=== PATIENT | male | born 1970 | race Caucasian/White ===

== ENCOUNTER 2018-01-21 17:30 | Emergency (ER) | payer SELFPAY ==
[2018-01-21] MEDS ORDERED: KETOROLAC TROMETHAMINE INJ 30 MG/ML VIAL IM ONE (18:56)
[2018-01-21] MEDS ORDERED: MORPHINE SULFATE INJ 10 MG/ML VIAL IM ONE (18:56)
--- NOTE | 2018-01-21 18:56 | ED.PDOC ---
History of Present Illness - General Chief Complaint: Back Pain or Injury Stated Complaint: upper back pain Time Seen by Provider: 01/21/18 18:44 Source: patient Exam Limitations: no limitations - History of Present Illness Initial Comments: Oliverio Foster 47 y/o male stated that he slipped and lost his balance on his boat and fell on his upper back landed on the propeller of his boat.Denies nec / head injuries .Sharp pains below his shoulder blades. Timing/Duration: 1-3 hours Quality/Severity: sharpness Back Pain Location: T-spine Back Pain Radiation: other - none Method of Injury/Prior Injury: fell Improving Factors: rest Worsening Factors: movement Associated Symptoms: denies symptoms Allergies/Adverse Reactions: Allergies No Known Drug Allergy Allergy (Verified 01/21/18 17:49) Home Medications: Ambulatory Orders Acetamin W/Cod #3 Tab [Tylenol w/CODEINE #3] 1 ea PO Q8HRS PRN #14 tab 01/21/18 Cephalexin 1,000 mg PO BID 7 Days #30 cap 01/21/18 Review of Systems - Review of Systems Constitutional: States: no symptoms reported EENTM: States: no symptoms reported Respiratory: States: no symptoms reported Cardiology: States: no symptoms reported Gastrointestinal/Abdominal: States: no symptoms reported Genitourinary: States: no symptoms reported Musculoskeletal: States: see HPI Neurological: States: no symptoms reported Past Medical History (General) - Patient Medical History Hx Seizures: No Hx Stroke: No Hx Dementia: No Hx Asthma: No Hx of COPD: No Hx Cardiac Disorders: No Hx Congestive Heart Failure: No Hx Pacemaker: No Hx Hypertension: No Hx Thyroid Disease: No Hx Diabetes: No Hx Gastroesophageal Reflux: No Hx Renal Disease: No Hx Cancer: No Hx of HIV: No Hx Hepatitis C: No Hx MRSA: No Surgical History: no surgical history - Vaccination History Hx Tetanus, Diphtheria Vaccination: No Hx Influenza Vaccination: No Hx Pneumococcal Vaccination: No Immunizations Up to Date: No - Social History Hx Tobacco Use: No Hx Chewing Tobacco Use: No Hx Alcohol Use: No Hx Substance Use: No Hx Substance Use Treatment: No Hx Depression: No Feels Threatened In Home Enviroment: No Feels Threatened In a Relationship: No Hx Physical Abuse: No Hx Emotional Abuse: No Hx Suspected Abuse: No - Female History Patient is a Female of Child Bearing Age (10 -59 yrs old): No Patient : No Family Medical History - Family History Mother Family History: Unknown Hx Family Diabetes: Yes - dad Physical Exam - Physical Exam General Appearance: Alert, Comfortable, No apparent distress Eyes, Ears, Nose, Throat Exam: normal ENT inspection Neck Exam: non-tender, full range of motion, normal alignment, normal inspection Cardiovascular/Respiratory: regular rate, rhythm, no M/R/G, normal peripheral pulses, normal breath sounds, no respiratory distress Peripheral Pulses: radial,right: 2+, radial,left: 2+ Gastrointestinal/Abdominal: non tender, soft Back Exam: no CVA tenderness, no vertebral tenderness, other - tenderness mid thoracic area Extremity Exam: no evidence of injury, normal range of motion, non-tender Neurologic: no motor/sensory deficits, alert Skin Exam: normal color, warm/dry, other - abrasions mid back linear Progress - Progress Progress: 01/21/18 19:00 Vital Signs - 8 hr 01/21/18 17:30 Temperature 97.7 F Pulse Rate [ 88 Apical] Respiratory 20 Rate Blood Pressure 114/80 [Left Arm] O2 Sat by Pulse 97 Oximetry - EKG/XRAY/CT XRAY: chest - no fracture left ribs ,t-spine,left shoulder CT Ordered: No CT Interpretation Call Back: No Departure - Departure Clinical Impression: Contusion of chest wall with intact skin Fall Qualifiers: Encounter type: initial encounter Qualified Code(s): W19.XXXA - Unspecified fall, initial encounter Abrasion of back Qualifiers: Encounter type: initial encounter Laterality: left Qualified Code(s): S20.412A - Abrasion of left back wall of thorax, initial encounter Time of Disposition: 19:20 Disposition: Discharge to Home or Self Care Condition: Good Departure Forms: ED Discharge - Pt. Copy, Patient Portal Self Enrollment Instructions: Contusion (DC), Bruised Rib (DC) Prescriptions: Acetamin W/Cod #3 Tab [Tylenol w/CODEINE #3] 1 ea PO Q8HRS PRN #14 tab PRN Reason: Pain Cephalexin 1,000 mg PO BID 7 Days #30 cap Home Medications: Ambulatory Orders Acetamin W/Cod #3 Tab [Tylenol w/CODEINE #3] 1 ea PO Q8HRS PRN #14 tab 01/21/18 Cephalexin 1,000 mg PO BID 7 Days #30 cap 01/21/18 Additional Instructions: Follow up with your primary Md in [place] 24 January 2018
[2018-01-21] MEDS ORDERED: CEPHALEXIN MONOHYDRATE 500 MG CAP PO ONE (19:00)
[2018-01-21] MEDS ORDERED: TETANUS,DIPHTHERIA,PERTUSSIS 1 EA SYG IM ONE (19:01)
--- NOTE | 2018-01-21 19:06 | RAD ---
EXAM DESCRIPTION: Ribs,Left 3 Views CLINICAL HISTORY: 47 years Male, pain injury COMPARISON: None. FINDINGS: No obvious acute left rib fracture. Mild degenerative changes of the spine noted. Visualized lungs are clear. Heart size is normal. Visualized bowel gas pattern appears nonobstructive. IMPRESSION: No obvious acute left rib fracture. Electronically signed by: Davide Goins MD 01/21/2018 7:04 PM CDT
--- NOTE | 2018-01-21 19:07 | RAD ---
EXAM DESCRIPTION: Shoulder,Left 2 or More Views CLINICAL HISTORY: 47 years Male, Injury pain COMPARISON: None. FINDINGS: Osseous structures are unremarkable. There is no acute fracture. No dislocation. Surrounding soft tissues are unremarkable. IMPRESSION: No acute findings. Electronically signed by: Davide Goins MD 01/21/2018 7:06 PM CDT
--- NOTE | 2018-01-21 19:08 | RAD ---
EXAM DESCRIPTION: Thoracic Spine Lateral Only CLINICAL HISTORY: 47 years, Male, pain and injury COMPARISON: Left wrist radiographs January 21, 2018. FINDINGS: The AP view of the thoracic spine is present on the rib radiographs. There are 12 rib-bearing thoracic vertebral bodies in normal anatomic alignment. There is no evidence of acute fracture or dislocation. There are no significant degenerative changes. Limited evaluation of the lungs and mediastinum demonstrate no gross abnormalities. The prevertebral and paravertebral soft tissues are grossly normal. IMPRESSION: No acute fracture or dislocation of the thoracic spine. Electronically signed by: Zandra Mosqueda MD 01/21/2018 7:06 PM CDT
[2018-01-21 19:20] VITALS: BP 124/76; O2SAT 98
[2018-01-21] MEDS ORDERED: HYDROCOD/APAP 10/325 (ER DISP) # 3 tablets PO ONE (19:25)
[2018-01-21 19:41] VITALS: TEMP 98.1
== END 2018-01-21 19:39 | disposition home or self-care (01) ==
LOC: ER 17:30
DX: S20.412A Abrasion of left back wall of thorax, initial encounter (principal); S20.219A Contusion of unspecified front wall of thorax, initial encounter; Z23 Encounter for immunization; W19.XXXA Unspecified fall, initial encounter; Y92.814 Boat as the place of occurrence of the external cause
CPT/HCPCS: 71101; 72020; 73030; 90471; 90715; J1885; J2270